=== PATIENT | male | born 1975 | race African-American/Black ===

== ENCOUNTER 2021-05-01 20:41 | Emergency (ER) | payer OTHER ==
[~2021-05-01] VITALS: Ht 177.8 cm; Wt 139.7 kg
[2021-05-01] MEDS ORDERED: IV NS 0.9% 1,000 ML BAG IV ONE (21:30)
[2021-05-01] MEDS ORDERED: DEXAMETHASONE SOD PHOSPHATE 10 MG/ML VIAL IV ONE (21:30)
[2021-05-01] MEDS ORDERED: KETOROLAC TROMETHAMINE INJ 30 MG/ML VIAL IV ONE (21:30)
[2021-05-01] MEDS ORDERED: MORPHINE SULFATE INJ 2 MG/ML DISP.SYRIN IV ONE (21:30)
[2021-05-01] MEDS ORDERED: ONDANSETRON HCL/PF 4 MG/2 ML VIAL IVP ONE (21:30)
[2021-05-01 21:45] LABS: BASOPHILS % (AUTO) 0.5 % (0.0-2.0); EOSINOPHILS % (AUTO) 3.9 % (0.0-6.0); HEMATOCRIT 37 % (39-51); HEMOGLOBIN 12.2 g/dL (13.5-17.5); LYMPHOCYTES # (AUTO) 1.3 /CMM (0.8-4.8); LYMPHOCYTES % (AUTO) 17.3 % (20.0-44.0); MEAN CORPUSCULAR HGB CONC 33 g/dl (31.0-36.0); MEAN CORPUSCULAR VOLUME 88 fL (80-96); MONOCYTES # (AUTO) 0.7 /CMM (0.1-1.30); MONOCYTES % (AUTO) 8.7 % (2.0-12.0); NEUTROPHILS # (AUTO) 5.3 /CMM (1.8-8.9); NEUTROPHILS % (AUTO) 69.6 % (43.0-81.0); PLATELET COUNT (AUTO) 140 /CMM (150-450); RED BLOOD CELL COUNT(AUTO) 4.25 MIL/uL (4.5-6.0); WHITE BLOOD COUNT (AUTO) 7.6 K/uL (4.3-11.0)
[2021-05-01 21:56] LABS: CALCIUM, SERUM 9.5 mg/dL (8.5-10.1); CREATININE 0.9 mg/dL (0.6-1.3); POTASSIUM 3.4 mmol/L (3.5-5.1)
[2021-05-01 21:58] LABS: BILIRUBIN,URINE SMALL (NEGATIVE); COLOR,URINE YELLOW (YELLOW); LEUKOCYTE ESTERASE ,URINE Negative (NEGATIVE); NITRITE, URINE Negative (NEGATIVE); PH,URINE 6.5 (5.0-8.0); PROTEIN,URINE 100 mg/dl (NEGATIVE); UGLUCOSE Negative (NEGATIVE)
[2021-05-01] MEDS ORDERED: DEXAMETHASONE SOD PHOSPHATE 10 MG/ML VIAL ONE (22:00)
[2021-05-01] MEDS ORDERED: KETOROLAC TROMETHAMINE 15 MG/ML VIAL ONE (22:00)
[2021-05-01] MEDS ORDERED: ONDANSETRON HCL/PF 4 MG/2 ML VIAL ONE (22:01)
[2021-05-01] MEDS ORDERED: MORPHINE SULFATE INJ 4 MG/ML DISP.SYRIN ONE (22:01)
[2021-05-01 22:02] LABS: ALBUMIN 3.7 g/dL (3.4-5.0); BILIRUBIN,DIRECT 0.2 mg/dL (0.0-0.2); BILIRUBIN,TOTAL 1.1 mg/dL (0.2-1.0); TOTAL PROTEIN, SERUM 8.2 g/dL (6.4-8.2)
[2021-05-01 22:29] LABS: BACTERIA,URINE Rare /HPF (None Seen); SQUAMOUS EPITHELIAL CELL,UR Few /HPF (None Seen); WBC,URINE NONE SEEN /HPF (0-3)
[2021-05-01] MEDS ORDERED: HYDROMORPHONE 1 MG/1 ML DISP.SYRIN ONE (23:12)
[2021-05-01] MEDS ORDERED: HYDROMORPHONE 1 MG/1 ML DISP.SYRIN IV ONE (23:30)
[2021-05-01] MEDS ORDERED: CIPR-262 PO (23:49)
--- NOTE | 2021-05-02 00:07 | NUR ---
Patient discharged to home in stable condition. Written and verbal after care instructions given. Patient verbalizes understanding of instruction and RX. IV removed. Catheter intact and site benign. Pressure and 4x4 applied to site. No bleeding noted.
[2021-05-02 00:41] VITALS: BP 131/76
== END 2021-05-02 00:41 | disposition home or self-care (01) ==
LOC: ER 20:44
DX: M54.16 Radiculopathy, lumbar region (principal); D69.6 Thrombocytopenia, unspecified; R80.9 Proteinuria, unspecified; R31.9 Hematuria, unspecified; E11.9 Type 2 diabetes mellitus without complications; E66.01 Morbid (severe) obesity due to excess calories; Z68.41 Body mass index [BMI] 40.0-44.9, adult; Z96.641 Presence of right artificial hip joint; Z98.890 Other specified postprocedural states; Z60.2 Problems related to living alone
CPT/HCPCS: 36415; 72110; 74176; 80048; 80076; 81001; 82962; 85025; 96361; 96374; 96375; 99285; J1100; J1170; J1885; J2270; J2405; J7030 ×2

== ENCOUNTER 2021-05-09 16:35 | Inpatient (IN) | payer OTHER ==
[~2021-05-09] VITALS: Ht 177.8 cm; Wt 152.4 kg
[~2021-05-09 16:35] MED LIST: CIPR-262 PO
--- NOTE | 2021-05-09 16:45 | NUR ---
, from home, c/o inner thigh pain x 1 week, 10 PS. On room air, breathing evenly and unlabored. Connected to the monitor and pulse ox. Kept comfortable, will continue to monitor accordingly.
[2021-05-09 17:52] LABS: BASOPHILS # (AUTO) 0.1 /CMM (0.0-0.2); BASOPHILS % (AUTO) 0.6 % (0.0-2.0); HEMATOCRIT 33 % (39-51); HEMOGLOBIN 10.8 g/dL (13.5-17.5); LYMPHOCYTES # (AUTO) 1.6 /CMM (0.8-4.8); LYMPHOCYTES % (AUTO) 15.5 % (20.0-44.0); MEAN CORPUSCULAR HGB CONC 33 g/dl (31.0-36.0); MEAN CORPUSCULAR VOLUME 87 fL (80-96); MONOCYTES % (AUTO) 9.8 % (2.0-12.0); NEUTROPHILS # (AUTO) 7.7 /CMM (1.8-8.9); NEUTROPHILS % (AUTO) 72.1 % (43.0-81.0); PLATELET COUNT (AUTO) 275 /CMM (150-450); RED BLOOD CELL COUNT(AUTO) 3.81 MIL/uL (4.5-6.0); WHITE BLOOD COUNT (AUTO) 10.6 K/uL (4.3-11.0)
[2021-05-09 18:29] LABS: CALCIUM, SERUM 9.3 mg/dL (8.5-10.1); CREATININE 0.9 mg/dL (0.6-1.3); POTASSIUM 4.2 mmol/L (3.5-5.1)
[2021-05-09] MEDS ORDERED: ENOXAPARIN SODIUM 150 MG/ML DISP.SYRIN SQ ONE (18:30)
[2021-05-09 18:36] LABS: ALBUMIN 3.1 g/dL (3.4-5.0); BILIRUBIN,DIRECT 0.1 mg/dL (0.0-0.2); BILIRUBIN,TOTAL 0.5 mg/dL (0.2-1.0); TOTAL PROTEIN, SERUM 7.4 g/dL (6.4-8.2)
[2021-05-09] MEDS ORDERED: HYDR50TA61 PO (18:49)
[2021-05-09] MEDS ORDERED: METF-440 PO (18:49)
[2021-05-09] MEDS ORDERED: ARIP5TAB59 PO (18:49)
[2021-05-09] MEDS ORDERED: MAGNESIUM HYDROXIDE 30 ML UDC PO PRN (19:00)
[2021-05-09] MEDS ORDERED: *INSULIN REGULAR(HUMULIN R)HUM 100 UNIT/ML VIAL SQ PRN (19:00)
[2021-05-09] MEDS ORDERED: ACETAMINOPHEN 325 MG TABLET PO PRN (19:00)
[2021-05-09] MEDS ORDERED: DEXTROSE 50%-WATER 50 ML DISP.SYRIN IV PRN (19:00)
[2021-05-09] MEDS ORDERED: ONDANSETRON HCL/PF 4 MG/2 ML VIAL IVP PRN (19:00)
[2021-05-09] MEDS ORDERED: Z GUARD REMEDY 2 OZ OINT TP PRN (19:00)
[2021-05-09] MEDS ORDERED: MAG HYDROX/AL HYDROX/SIMETH 30 ML UDC PO PRN (19:00)
[2021-05-09] MEDS ORDERED: ENOXAPARIN SODIUM 100 MG/ML DISP.SYRIN SQ ONE (19:02)
--- NOTE | 2021-05-09 19:15 | NUR ---
ASSUMED CARE FOR THIS PT. PT AAOX4, VSS, RESPIRATIONS EVEN AND UNLABORED. PT CONNECTED TO THE MONITOR AND POX
[2021-05-09] MEDS ORDERED: HYDROCODONE/APAP 5/325MG TABLET PO ONE (19:30)
[2021-05-09 19:31] LABS: BILIRUBIN,URINE SMALL (NEGATIVE); COLOR,URINE DARK YELLOW (YELLOW); LEUKOCYTE ESTERASE ,URINE NEGATIVE (NEGATIVE); NITRITE, URINE NEGATIVE (NEGATIVE); PROTEIN,URINE 100 mg/dl (NEGATIVE); UGLUCOSE NEGATIVE (NEGATIVE)
[2021-05-09 20:26] LABS: BACTERIA,URINE Few /HPF (None Seen); RBC,URINE TOO NUMEROUS TO COUN /HPF (0-2); SQUAMOUS EPITHELIAL CELL,UR Few /HPF (None Seen); URINE AMORPHOUS URATE Moderate /HPF (None Seen)
--- NOTE | 2021-05-09 21:15 | NUR ---
REPORT GIVEN, PT TRANSFERED PER ACLS PROTOCOL
[2021-05-09 21:20] VITALS: BP 113/67
[2021-05-09 21:30] VITALS: BP 113/67
[2021-05-09] MEDS: ARIPIPRAZOLE 5 MG TABLET PO SCH (21:49)
[2021-05-09] MEDS: BLOOD SUGAR DIAGNOSTIC 1 EACH STRIP VI SCH (21:50)
[2021-05-09] MEDS: MORPHINE SULFATE INJ 2 MG/ML DISP.SYRIN IV PRN (21:51)
--- NOTE | 2021-05-09 22:00 | NUR ---
Patient arrived on unit 3 [place] at 2120 on [facility] with assistance of 2 ER staff members. In stable condition, Awake, A&Ox4, VS 113/67, HR 80, RR 20, Temp 97.9, O2 95%. No respiratory or cardiac distress. Pupils equal and reactive to light, extremities move evenly. Heart rate and rhythm regular. Lung sounds clear with symmetrical expansion. Bowel sounds active x4 quadrants. BLE 2+ pitting edema feet 2+ pitting edema as well. Skin Intact. Patient reports 10/10 pain to BLE. Will medicate. Oriented to hospital protocols, call light, room. Educated patient on bed rest, diet, and possible side effects of blood thinners to watch for.
--- NOTE | 2021-05-10 00:09 | NUR ---
MS RN NOTES Patient reports he was not able to take his hydroxyzine as per usual at home because he came to the ER before 6pm the usual time. Patient requests it now. One time order NOW.
[2021-05-10] MEDS ORDERED: hydrOXYzine PAMOATE 25 MG CAPSULE PO ONE (00:30)
[2021-05-10] MEDS ORDERED: hydrOXYzine PAMOATE 50 MG CAPSULE PO ONE (00:30)
[2021-05-10] MEDS ORDERED: hydrOXYzine 10 MG TABLET ONE (00:41)
[2021-05-10] MEDS ORDERED: hydrOXYzine HCL SYRUP 10 MG/5 ML UDC PO ONE (01:00)
[2021-05-10] MEDS ORDERED: hydrOXYzine 10 MG TABLET PO ONE (01:30)
[2021-05-10] MEDS: HYDROCODONE/APAP 5/325MG TABLET PO PRN ×2 (01:31→05:31)
[2021-05-10] MEDS: MORPHINE SULFATE INJ 2 MG/ML DISP.SYRIN IV PRN ×4 (02:23→21:15)
--- NOTE | 2021-05-10 06:45 | NUR ---
MS RN NOTES Patient awake most of night in pain to BLE, but after a while and a couple PRN pain medication admins the pain became well managed. Currently sleeping but easy to rouse. Maintained strict bed rest. No signs of distress, denies SOB. IV patent and flushed. Will endorse.
[2021-05-10] MEDS: BLOOD SUGAR DIAGNOSTIC 1 EACH STRIP VI SCH ×4 (06:50→22:26)
[2021-05-10 07:25] LABS: BASOPHILS # (AUTO) 0.1 /CMM (0.0-0.2); BASOPHILS % (AUTO) 0.9 % (0.0-2.0); EOSINOPHILS % (AUTO) 2.9 % (0.0-6.0); HEMATOCRIT 33 % (39-51); HEMOGLOBIN 10.5 g/dL (13.5-17.5); LYMPHOCYTES # (AUTO) 1.8 /CMM (0.8-4.8); LYMPHOCYTES % (AUTO) 20.2 % (20.0-44.0); MEAN CORPUSCULAR HGB CONC 32 g/dl (31.0-36.0); MEAN CORPUSCULAR VOLUME 88 fL (80-96); MONOCYTES # (AUTO) 0.9 /CMM (0.1-1.30); MONOCYTES % (AUTO) 9.7 % (2.0-12.0); NEUTROPHILS # (AUTO) 5.9 /CMM (1.8-8.9); NEUTROPHILS % (AUTO) 66.3 % (43.0-81.0); PLATELET COUNT (AUTO) 289 /CMM (150-450); RED BLOOD CELL COUNT(AUTO) 3.72 MIL/uL (4.5-6.0); WHITE BLOOD COUNT (AUTO) 8.8 K/uL (4.3-11.0)
[2021-05-10 07:34] LABS: CALCIUM, SERUM 9.4 mg/dL (8.5-10.1); MAGNESIUM 2.2 mg/dL (1.8-2.4); PHOSPHORUS 4.9 mg/dL (2.5-4.9); POTASSIUM 4.3 mmol/L (3.5-5.1)
[2021-05-10] MEDS: ENOXAPARIN SODIUM 60 MG/0.6 ML DISP.SYRIN SQ SCH ×2 (08:55→21:43)
[2021-05-10] MEDS ORDERED: ENOXAPARIN SODIUM 120 MG/0.8 ML DISP.SYRIN SQ SCH (09:00)
[2021-05-10] MEDS: hydrOXYzine PAMOATE 25 MG CAPSULE PO PRN ×2 (10:55→21:42)
[2021-05-10] MEDS: hydrOXYzine PAMOATE 25 MG CAPSULE PO SCH (16:58)
[2021-05-10] MEDS ORDERED: hydrOXYzine PAMOATE 50 MG CAPSULE PO SCH (18:00)
--- NOTE | 2021-05-10 19:00 | NUR ---
RN OPENING NOTE RECEIVED PT AWAKE IN BED.A/OX4. PT IS ON RA. NO SOB NOTED. NO S/S OF RESPIRATORY DISTRESS. PT IS BED REST. SKIN IS INTACT. PT HAS NO C/O PAIN AT THIS TIME. IV ACCESS IN LAC#18, INTACT, PATENT AND FLUSHING WELL. SAFETY MEASURES MAINTAINED. BED IN LOWEST LOCKED POSITION, HOB ELEVATED, SIDE RAILS UP X2. CALL LIGHT AND TABLE WITHIN REACH. WILL CONTINUE WITH PLAN OF CARE.
--- NOTE | 2021-05-10 19:35 | NUR ---
CHANGE OF SHIFT REPORT PT RESTING COMFORTABLY IN BED. NO S/S OR C/O PAIN OR DISTRESS NOTED. SIDE RAILS UP X2, CALL LIGHT LEFT WITHIN REACH. NO SIGNIFICANT CHANGES SINCE PREVIOUS SHIFT. WILL GIVE REPORT TO NOC RN
--- NOTE | 2021-05-10 19:36 | NUR ---
PT RECEIVED RESTING COMFORTABLY IN BED. NO S/S OR C/O PAIN OR DISTRESS NOTED. SIDE RAILS UP X2, CALL LIGHT LEFT WITHIN REACH. WILL CONTINUE PLAN OF CARE.
[2021-05-10 20:00] VITALS: BP 111/58
--- NOTE | 2021-05-10 21:15 | NUR ---
PT C/O OF PAIN OF 8 /10 , PER PT REQUEST MORPHINE 2GM/1ML ADMINISTERED THROUGH IV AT [facility]
--- NOTE | 2021-05-10 21:47 | NUR ---
BS 120 Addendum: 05/11/21 at 0322 by LULU MARIN RN BS 120. NO INSULIN COVERAGE GIVEN
[2021-05-10] MEDS: ARIPIPRAZOLE 5 MG TABLET PO SCH (22:29)
[2021-05-11] MEDS: MORPHINE SULFATE INJ 2 MG/ML DISP.SYRIN IV PRN ×4 (01:29→23:05)
--- NOTE | 2021-05-11 01:29 | NUR ---
PT C/O ACHING PAIN 9/10 ON HIS THIGHS, BP 11/58, HR 62, RR 18, T 99, O2 SAT 94 ON RA PER PT REQUEST MORPHINE 2MG/1ML IV Q4HR PRN ADMINISTERED PER ORDER. WILL CONTINUE TO MONITOR. Addendum: 05/12/21 at 0415 by LULU MARIN RN PT C/O ACHING PAIN 9/10 ON HIS THIGHS, BP 111/58, HR 62, RR 18, T 99, O2 SAT 94 ON RA PER PT REQUEST MORPHINE 2MG/1ML IV Q4HR PRN ADMINISTERED PER ORDER. WILL CONTINUE TO MONITOR.
--- NOTE | 2021-05-11 06:00 | NUR ---
MS RN CLOSING NOTE PT IS AWAKE IN BED , EASY TO AROUSE. A/OX4. PT IS STABLE ON RA. NO SOB NOTED, NO S/S OF RESPIRATORY DISTRESS. PT IS BED REST. IV ACCESS IS INTACT, PATENT, AND FLUSHING WELL. ALL NEEDS HAVE BEEN MET. ALL CARE, NEEDS, MEDICATIONS, AND TREATMENT ADMINISTERED ANTICIPATED PER ORDER. PAIN MANAGEMENT ADMINISTERED. SAFETY MAINTAINED AT ALL TIMES. BED IN LOWEST LOCKED POSITION, HOB ELEVATED, SIDE RAILS UPX2. CALL LIGHT AND TABLE WITHIN REACH. WILL ENDORSE TO ONCOMING NURSE FOR GRACE.
[2021-05-11 06:42] LABS: CALCIUM, SERUM 9.1 mg/dL (8.5-10.1); CREATININE 0.9 mg/dL (0.6-1.3); POTASSIUM 4.2 mmol/L (3.5-5.1)
[2021-05-11] MEDS: BLOOD SUGAR DIAGNOSTIC 1 EACH STRIP VI SCH ×4 (06:47→22:39)
[2021-05-11] MEDS: hydrOXYzine PAMOATE 25 MG CAPSULE PO PRN (07:23)
--- NOTE | 2021-05-11 07:29 | NUR ---
RN OPENING NOTES RECEIVED PT IN BED AWAKE, A/OX4. ABLE TO MAKE NEEDS KNOWN WITH C/O B/L THIGH AND BODY ITCHING, PRN MORPHINE 2MG/ML IVP AND VISTARIL 25 MG PO GIVEN ORDERED. ON RA, TOLERATING WELL, NO SOB NOTED. IV SL ON LAC#18 INTACT, PATENT AND FLUSHING WELL. SAFETY MEASURES MAINTAINED: BED IN LOWEST LOCKED POSITION, HOB ELEVATED, SIDE RAILS UP X2. CALL LIGHT AND TABLE WITHIN EASY REACH OF PT. WILL CONTINUE TO MONITOR PT.
[2021-05-11 07:51] LABS: BASOPHILS % (AUTO) 0.4 % (0.0-2.0); EOSINOPHILS % (AUTO) 2.2 % (0.0-6.0); HEMATOCRIT 31 % (39-51); HEMOGLOBIN 10.3 g/dL (13.5-17.5); LYMPHOCYTES # (AUTO) 1.7 /CMM (0.8-4.8); LYMPHOCYTES % (AUTO) 17.9 % (20.0-44.0); MEAN CORPUSCULAR HGB CONC 33 g/dl (31.0-36.0); MEAN CORPUSCULAR VOLUME 87 fL (80-96); MONOCYTES % (AUTO) 9.9 % (2.0-12.0); NEUTROPHILS # (AUTO) 6.8 /CMM (1.8-8.9); NEUTROPHILS % (AUTO) 69.6 % (43.0-81.0); PLATELET COUNT (AUTO) 326 /CMM (150-450); RED BLOOD CELL COUNT(AUTO) 3.59 MIL/uL (4.5-6.0); WHITE BLOOD COUNT (AUTO) 9.7 K/uL (4.3-11.0)
[2021-05-11 08:00] VITALS: BP 114/55
[2021-05-11] MEDS: ENOXAPARIN SODIUM 60 MG/0.6 ML DISP.SYRIN SQ SCH (08:25)
[2021-05-11] MEDS ORDERED: APIXABAN 5 MG TABLET PO SCH (09:00)
[2021-05-11] MEDS: INSULIN REGULAR, HUMAN 100 UNIT/ML 3 ML VIAL SQ PRN ×2 (11:39→17:18)
[2021-05-11 16:00] VITALS: BP 112/71
[2021-05-11] MEDS: hydrOXYzine PAMOATE 25 MG CAPSULE PO SCH (18:07)
--- NOTE | 2021-05-11 18:20 | NUR ---
RN NOTES PATIENT C/O ACHING SHARP PAIN ON B/L THIGH, 10/10 SCALE, PRN MORPHINE 2MG/ML IVP ADMINISTERED AT 1812. WILL CONTINUE TO MONITOR AND REASSESS PT.
--- NOTE | 2021-05-11 18:33 | NUR ---
MS RN CLOSING NOTES PT IN BED RESTING AT MODERATE HIGH BACKREST POSITION. WATCHING TV AT THIS TIME. A/OX4. ABLE TO MAKE NEEDS KNOWN. TOLERATING ROOM AIR WITH NO ACUTE RESPIRATORY DISTRESS NOTED DURING SHIFT. IV SL ON LAC G#18 INTACT, PATENT AND FLUSHING WELL. ALL NEEDS AND CARE ATTENDED WELL. SAFETY MEASURES MAINTAINED: BED IN LOWEST LOCKED POSITION, HOB ELEVATED, SIDE RAILS UP X2. CALL LIGHT AND BEDSIDE TABLE WITHIN EASY REACH OF PT. WILL ENDORSE GRACE TO RUFFLER NURSE..
--- NOTE | 2021-05-11 20:00 | NUR ---
RN OPENING NOTE RECEIVED PT AWAKE IN BED.A/OX4. PT IS ON RA. NO SOB NOTED. NO S/S OF RESPIRATORY DISTRESS. PT IS BED REST. SKIN IS INTACT. PT HAS NO C/O PAIN AT THIS TIME. IV ACCESS IN LAC#18, INTACT, PATENT AND FLUSHING WELL. BEDSIDE COMMODE IN PLACE. SAFETY MEASURES MAINTAINED. BED IN LOWEST LOCKED POSITION, HOB ELEVATED, SIDE RAILS UP X2. CALL LIGHT AND TABLE WITHIN REACH. WILL CONTINUE WITH PLAN OF CARE.
[2021-05-11 20:07] VITALS: BP 108/65
[2021-05-11] MEDS: APIXABAN 5 MG TABLET PO SCH (20:48)
[2021-05-11] MEDS: ARIPIPRAZOLE 5 MG TABLET PO SCH (22:10)
[2021-05-11] MEDS ORDERED: diphenhydrAMINE HCL 25 MG CAPSULE PO ONE (22:30)
--- NOTE | 2021-05-11 23:05 | NUR ---
PT C/O ACHING AND SHARP PAIN 10/10 ON HIS THIGHS, BP 108/65/, HR 98, RR 18, T 99.6, O2 SAT 94 ON RA PER PT REQUEST MORPHINE 2MG/1ML IV Q4HR PRN ADMINISTERED AT THIS TIME PER ORDER. WILL CONTINUE TO MONITOR.
[2021-05-12] MEDS: BLOOD SUGAR DIAGNOSTIC 1 EACH STRIP VI SCH ×2 (07:36→12:00)
[2021-05-12] MEDS: MORPHINE SULFATE INJ 2 MG/ML DISP.SYRIN IV PRN ×2 (07:36→12:24)
[2021-05-12 08:00] VITALS: BP 97/46
--- NOTE | 2021-05-12 08:00 | NUR ---
RN OPENING NOTE PT AWAKE IN BED. A/O X3 AND SOMALI SPEAKING. COMPLAINT OF PAIN PRESENT. PAIN MEDS GIVEN. NO COMPLAINT OF NAUSEA. CURRENTLY ON RA WITH NO SOB OR RESPIRATORY DISTRESS PRESENT. NO STONE CIRCULAR SAWYER PRESENT. BLE EDEMA PRESENT. ON BEDREST WITH URINAL AT BEDSIDE. SKIN IS INTACT. IV PRESENT ON L AC 18G AND FLUSHES WELL. LABS REVIEWED. SAFETY MEASURES IN PLACE. SIDE RAILS RAISED. BED LOWERED. CALL LIGHT WITHIN REACH. WILL CONTINUE TO MONITOR.
[2021-05-12] MEDS ORDERED: APIX5TAB PO (08:22)
[2021-05-12] MEDS: APIXABAN 5 MG TABLET PO SCH (08:44)
--- NOTE | 2021-05-12 10:56 | NUR ---
Mediator note: financial services associate consult received for D/C planning. Per D/C planning assessment, patient will be D/C to home. No further SS intervention at this time, however, SW will remain available as needed.
--- NOTE | 2021-05-12 12:00 | NUR ---
RN NOTE PT REFUSED 1200 BG CHECK. NO S/S OF HYPOGLYCEMIA OR HYPERGLYCEMIA. WILL CONTINUE TO MONITOR.
[2021-05-12] MEDS: HYDROCODONE/APAP 5/325MG TABLET PO PRN (13:31)
[2021-05-18] MEDS ORDERED: APIXABAN 5 MG TABLET PO SCH ×2 (09:00→17:00)
== END 2021-05-12 15:25 | disposition home or self-care (01) | DRG 197 ==
LOC: ER 16:51 → MED 21:01
PROVIDERS: ADMIT Internal Medicine; ATTEND Internal Medicine
DX: I82.403 Acute embolism and thrombosis of unspecified deep veins of lower extremity, bilateral (principal); E43 Unspecified severe protein-calorie malnutrition; E66.01 Morbid (severe) obesity due to excess calories; K76.0 Fatty (change of) liver, not elsewhere classified; M41.9 Scoliosis, unspecified; Z68.42 Body mass index [BMI] 45.0-49.9, adult; E11.9 Type 2 diabetes mellitus without complications; D64.9 Anemia, unspecified; K42.9 Umbilical hernia without obstruction or gangrene; Z96.641 Presence of right artificial hip joint; Z79.84 Long term (current) use of oral hypoglycemic drugs; Z79.899 Other long term (current) drug therapy; Z79.01 Long term (current) use of anticoagulants; Z86.718 Personal history of other venous thrombosis and embolism; Z95.828 Presence of other vascular implants and grafts; Z20.822 Contact with and (suspected) exposure to COVID-19
CPT/HCPCS: 36415; 71045-TC; 80048-TC; 80076-TC; 81001; 82962-TC; 83735-TC; 83880; 84100-TC; 85025-TC; 85730-TC; 87081-TC; 87086-TC; 93970-TC; 97112-TC; 97116-TC; 97530-TC; C9803; G0378; J1650; J1815; J2270; Q0177